=== PATIENT | female | born 1965 | race Asian ===

== ENCOUNTER 2017-12-12 06:50 | Day surgery (SDC) | payer OTHER ==
[2017-12-09 15:44] VITALS: BMI 28.5
[2017-12-12 08:43] VITALS: TEMP 97.9
[2017-12-12 09:22] VITALS: BP 110/73; PULSE 60
--- NOTE | 2017-12-13 16:11 | PATH ---
Surgical Pathology Report Patient Name: RENE ROBLES [facility]. Rec. #: [id number] /Age/Gender: 1965 (Age: 52) / F Account: [id number] Location: [facility]-ENDOSCOPY Taken: 12/12/2017 Received: 12/12/2017 Reported: 12/13/2017 Physicians: Steph Walton M.D. Specimen(s) Received BX RIGHT COLON POLYP Clinical History Screening colonoscopy Postoperative diagnosis: Colon polyp Final Diagnosis COLON, RIGHT, POLYP, BIOPSY: TUBULAR ADENOMA. Electronically Signed Reba Ireland M.D. Gross Description Received in formalin, labeled "biopsy polyp right colon" are 2 riggins, irregular portions of soft tissue measuring 0.2 and 0.4 cm. in greatest dimension. The specimens are submitted in toto in one cassette. /12/12/2017 saudi12/12/2017
== END 2017-12-12 10:50 | disposition home or self-care (01) ==
LOC: JASU-ENDO 06:50
PROVIDERS: ATTEND Internal Medicine Gastroenterology
PROC: 0DBK8ZX Excision of Ascending Colon, Via Natural or Artificial Opening Endoscopic, Diagnostic (ICD-10-PCS; principal; 2017-12-12 08:00)
DX: Z12.11 Encounter for screening for malignant neoplasm of colon (principal); D12.2 Benign neoplasm of ascending colon
CPT/HCPCS: 88305-TC

== ENCOUNTER 2021-07-06 04:55 | Day surgery (SDC) | payer OTHER ==
[2021-07-02 15:31] VITALS: BMI 27.8
[2021-07-06 09:36] VITALS: TEMP 97.3
[2021-07-06 10:30] VITALS: BP 119/68; PULSE 61
== END 2021-07-06 10:30 | disposition home or self-care (01) ==
LOC: JASU-ENDO 04:55
PROVIDERS: ATTEND Internal Medicine Gastroenterology
PROC: 0DBK8ZX Excision of Ascending Colon, Via Natural or Artificial Opening Endoscopic, Diagnostic (ICD-10-PCS; principal; 2021-07-06 09:07)
DX: Z12.11 Encounter for screening for malignant neoplasm of colon (principal); D12.2 Benign neoplasm of ascending colon; K57.30 Diverticulosis of large intestine without perforation or abscess without bleeding; Z86.010 Personal history of colon polyps
CPT/HCPCS: 88305-TC

== ENCOUNTER 2022-05-31 01:56 | Emergency (ER) | payer OTHER ==
[2022-05-31 02:07] VITALS: TEMP 98.7; BMI 26.7
[2022-05-31] MEDS ORDERED: ACETAMINOPHEN 500 MG TABLET (FP) PO ONE (02:58)
[2022-05-31] MEDS ORDERED: ACETAMINOPHEN 325 MG TABLET (FP) ONE (03:10)
[2022-05-31] MEDS ORDERED: LIDOCAINE 5% TOPICAL PATCH TP ONE (03:35)
[2022-05-31 03:46] LABS: BASO % 0.3 % (0-2.0); EOS % 0.3 % (0-4.5); HEMATOCRIT 39.3 % (32.4-45.2); LYMPH % 23.3 % (8-40); MCHC 33.2 g/dl (32.0-36.0); MEAN CELL VOLUME 87.5 fl (80-96); MEAN PLT VOLUME 8.6 fl (7.5-11.1); MONO % 6.4 % (3.8-10.2); NEUT % 69.7 % (42.8-82.8); PLATELET COUNT 262 10^3/uL (134-434); RBC 4.48 M/mm3 (3.60-5.2); RDW 14.1 % (11.6-15.6); WHITE BLOOD COUNT 10.2 K/mm3 (4.0-10.0)
[2022-05-31] MEDS ORDERED: LIDOCAINE 5% TOPICAL PATCH ONE (03:56)
[2022-05-31 04:14] LABS: CHLORIDE 110 mmol/L (98-107); SODIUM 140 mmol/L (136-145)
[2022-05-31 04:16] LABS: CALCIUM 9.4 mg/dL (8.5-10.1)
[2022-05-31 04:17] LABS: ALBUMIN 3.8 g/dl (3.4-5.0); ANION GAP 4 MMOL/L (8-16); BLOOD UREA NITROGEN 25.7 mg/dL (7-18); CO2 27 mmol/L (21-32); GLUCOSE,RANDOM 118 mg/dL (74-106)
[2022-05-31 04:19] LABS: URIC ACID 4.6 mg/dL (2.6-7.2)
[2022-05-31 04:20] LABS: CREATININE 0.7 mg/dL (0.55-1.3); SGOT/AST 19 U/L (15-37); SGPT/ALT 38 U/L (13-61)
[2022-05-31 04:21] LABS: BILIRUBIN,TOTAL 0.3 mg/dL (0.2-1)
[2022-05-31 04:22] LABS: TOT PROT 7.1 g/dl (6.4-8.2)
[2022-05-31 04:23] LABS: ALK PHOS 87 U/L (45-117)
[2022-05-31 04:27] VITALS: BP 116/74; PULSE 72; RESP 14
[2022-05-31 05:34] LABS: ERYTHROCYTE SEDIMENTATION RATE 10 mm/hr (0-30)
[2022-05-31] MEDS ORDERED: LIDOCAINE PATCH REMOVAL MC SCH (22:00)
== END 2022-05-31 05:03 | disposition home or self-care (01) ==
LOC: JER 01:56
DX: S89.91XA Unspecified injury of right lower leg, initial encounter (principal); Y99.9 Unspecified external cause status
CPT/HCPCS: 36415; 73564-TC-RT-FY; 80053; 84550; 85025; 85379; 85651; 86140; 99284-25